=== PATIENT | male | born 1975 | race Caucasian/White ===

== ENCOUNTER 2019-05-15 19:50 | Emergency (ER) | payer OTHER ==
--- NOTE | 2019-05-15 19:52 | EDM.PDOC ---
ED HPI GENERAL MEDICAL PROBLEM - General Stated Complaint: DISLOCATED SHOULDER Time Seen by Provider: 05/15/19 19:52 Source of Information: Reports: Patient History Limitations: Reports: No Limitations - History of Present Illness INITIAL COMMENTS - FREE TEXT/NARRATIVE: HISTORY AND PHYSICAL: History of present illness: Patient is a 43-year-old male who presents to the emergency room with concerns of a dislocated left shoulder. He states he is playing with the dog when he felt the left shoulder "dislocate". 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 He denies any falls or injury. Denies hitting his head or any other extremity involvement. Patient denies any fever, chills, headache, change in vision, syncope or near syncope. Denies any chest pain, back pain, shortness of breath or cough. Denies any GI or symptoms. Denies any numbness or tingling of the affected extremity. Review of systems: As per history of present illness and below otherwise all systems reviewed and negative. Past medical history: As per history of present illness and as reviewed below otherwise noncontributory. Surgical history: As per history of present illness and as reviewed below otherwise noncontributory. Social history: See social history for further information Family history: As per history of present illness and as reviewed below otherwise noncontributory. Physical exam: General: Well-developed and well-nourished 43-year-old male. Alert and oriented. Nontoxic appearing and in no acute distress. HEENT: Atraumatic, normocephalic, pupils equal and reactive bilaterally, negative for conjunctival pallor or scleral icterus, mucous membranes moist, trachea midline. No drooling or trismus noted. No meningeal signs. No hot potato voice noted. Lungs: Clear to auscultation, breath sounds equal bilaterally, chest nontender. Heart: S1S2, regular rate and rhythm without overt murmur Abdomen: Soft, nondistended, nontender. Skin: Intact, warm, dry. No lesions or rashes noted. Extremities: Obvious step-off of the left shoulder and has a guarded in towards his body. Limited range of motion due to pain. He moves all other extremities per self without difficulty or deficits. Strong radial pulses bilaterally. Neurovascular unremarkable. Neuro: Awake, alert, oriented. Cranial nerves II through XII unremarkable. Cerebellum unremarkable. Motor and sensory unremarkable throughout. Exam nonfocal. Notes: IV pain medication was given prior to reduction. Reduction was explained to patient prior to performing. He gave verbal consent for this. Traction and countertraction was applied for left shoulder reduction. Post reduction x-ray was obtained. X-ray shows that the dislocation has been successfully reduced. Alignment is in normal arrangement. No fracture or other abnormalities are noted.. Patient placed in a shoulder immobilizer. We discussed the need for appropriate follow- up with an orthopedic provider. Supportive care measures were reviewed and discussed. Voices understanding and is agreeable to plan of care. Denies any further questions or concerns at this time. Diagnostics: Shoulder x-ray, postreduction shoulder x-ray Therapeutics: IV Dilaudid, Zofran Prescription: Tramadol Impression: Left shoulder dislocation Plan: 1. Rest, ice, elevate the affected extremity. Please wear the immobilizer as directed. 2. Tylenol and/or Ibuprofen as needed for pain management. 3. Follow up with the Orthopedic provider as we discussed. Return to the ED as needed and as discussed. Definitive disposition and diagnosis as appropriate pending reevaluation and review of above. Onset: Today left shoulder Pain Score (Numeric/FACES): 9 - Related Data Allergies Allergy/AdvReac Type Severity Reaction Status Date / Time No Known Allergies Allergy Verified 05/15/19 19:59 Home Meds: Home Meds Cetirizine HCl [Zyrtec] 10 mg PO DAILY 11/21/15 [History] Omeprazole Magnesium [Prilosec Otc] 20 mg PO DAILY 11/21/15 [History] Past Medical History - Infectious Disease History Infectious Disease History: Reports: Chicken Pox Other Infectious Disease History: childhood - Past Surgical History Musculoskeletal Surgical History: Reports: Other (See Below) Review of Systems - Review of Systems Review Of Systems: ROS reveals no pertinent complaints other than HPI. ED EXAM, GENERAL - Physical Exam Exam: See Below (See dictation) Course - Vital Signs Last Recorded V/S: Last Vital Signs Temp 97 F 05/15/19 19:50 Pulse 97 05/15/19 19:50 Resp 18 05/15/19 19:50 BP 131/100 H 05/15/19 19:50 Pulse Ox 94 L 05/15/19 19:50 - Orders/Labs/Meds Meds: Medications Discontinued Medications Generic Name Dose Route Start Last Admin Trade Name Daniloq PRN Reason Stop Dose Admin Hydromorphone HCl 1 mg 05/15/19 19:54 05/15/19 20:21 Dilaudid IVPUSH 05/15/19 19:55 1 mg ONETIME ONE Administration Hydromorphone HCl 1 mg 05/15/19 20:09 05/15/19 20:27 Dilaudid IVPUSH 05/15/19 20:10 1 mg ONETIME ONE Administration Hydromorphone HCl Confirm 05/15/19 20:23 05/15/19 20:35 Dilaudid Administered 05/15/19 20:24 Not Given Dose 1 mg .ROUTE .STK-MED ONE Ondansetron HCl 4 mg 05/15/19 19:54 05/15/19 20:22 Zofran IVPUSH 05/15/19 19:55 4 mg ONETIME ONE Administration Departure - Departure Time of Disposition: 20:48 Disposition: Home, Self-Care 01 Clinical Impression: Shoulder dislocation Qualifiers: Encounter type: initial encounter Laterality: left Qualified Code(s): S43.005A - Unspecified dislocation of left shoulder joint, initial encounter - Discharge Information Instructions: Shoulder Dislocation, [id number] Referrals: Edgar Santana MD [Primary Care Provider] - Additional Instructions: The following information is given to patients seen in the emergency department who are being discharged to home. This information is to outline your options for follow-up care. We provide all patients seen in our emergency department with a follow-up referral. The need for follow-up, as well as the timing and circumstances, are variable depending upon the specifics of your emergency department visit. If you don't have a primary care physician on staff, we will provide you with a referral. We always advise you to contact your personal physician following an emergency department visit to inform them of the circumstance of the visit and for follow-up with them and/or the need for any referrals to a consulting specialist. The emergency department will also refer you to a specialist when appropriate. This referral assures that you have the opportunity for follow-up care with a specialist. All of these measure are taken in an effort to provide you with optimal care, which includes your follow-up. Under all circumstances we always encourage you to contact your private physician who remains a resource for coordinating your care. When calling for follow-up care, please make the office aware that this follow-up is from your recent emergency room visit. If for any reason you are refused follow-up, please contact the [facility] Emergency Department at and asked to speak to the emergency department charge nurse. [facility] [address], [place] [address] [facility] [address] [place] [id number] [facility] - [facility] Professional Building [address] [place] [address], [address] [place] [address] 1. Rest, ice, elevate the affected extremity. Please wear the immobilizer as directed. 2. Tylenol and/or Ibuprofen as needed for pain management. 3. Follow up with the Orthopedic provider as we discussed. Return to the ED as needed and as discussed.
[2019-05-15] MEDS ORDERED: Ondansetron 4 MG/2 ML SDV IVPUSH ONE (19:54)
[2019-05-15] MEDS ORDERED: HYDROmorphone 1 MG/ML Syringe IVPUSH ONE (19:54)
[2019-05-15] MEDS ORDERED: HYDROmorphone 2 MG/ML SDV IVPUSH ONE (20:09)
[2019-05-15] MEDS ORDERED: HYDROmorphone 1 MG/ML Syringe ONE (20:23)
--- NOTE | 2019-05-15 20:23 | CR ---
Indication: Pain, dislocation. Technique: Left shoulder 2 views Comparison: None Findings/Impression: There is an anterior dislocation of the glenohumeral joint. No fracture visualized. Soft tissues are unremarkable. Dictated by Gian Cowan MD @ May 15 2019 8:20PM Signed by Dr. Gian Cowan @ May 15 2019 8:22PM
--- NOTE | 2019-05-15 20:49 | CR ---
Indication: Shoulder dislocation post reduction Technique: Left shoulder 1 views Comparison: May 15, 2019 Findings/Impression: Dislocation has been successfully reduced. Alignment appears normal on this single image. No fracture or other new abnormality evident. Dictated by Gian Cowan MD @ May 15 2019 8:46PM Signed by Dr. Gian Cowan @ May 15 2019 8:48PM
[2019-05-15 21:20] VITALS: BP 140/95
== END 2019-05-15 21:09 | disposition home or self-care (01) ==
LOC: MW.ED 19:50
DX: S43.015A Anterior dislocation of left humerus, initial encounter (principal); Z79.899 Other long term (current) drug therapy; X50.9XXA Other and unspecified overexertion or strenuous movements or postures, initial encounter
CPT/HCPCS: 23650; 73020; 73030; 96374; 96375; 99283; J1170; J2405

== ENCOUNTER 2019-06-23 10:41 | Day surgery (SDC) | payer OTHER ==
[~2019-06-23 10:41] MED LIST: Lactated Ringers 1,000 ML IV SCH; Sodium Chloride 0.9% 10 ML SDV IV PRN; Sodium Chloride 0.9% 10 ML Syringe FLUSH PRN; Sodium Chloride 0.9% 2.5 ML Syringe FLUSH PRN
--- NOTE | 2019-06-23 11:29 | PCM.PREANE ---
Preanesthetic Assessment - Anesthesia/Transfusion/Family Hx Anesthesia History: Prior Anesthesia Without Reaction Other Type of Anesthesia Reaction Comment: slow to wake up after Septoplasty Family History of Anesthesia Reaction: No Transfusion History: No Prior Transfusion(s) - Review of Systems General: No Symptoms Pulmonary: Cough Cardiovascular: No Symptoms Neurological: No Symptoms Other: Reports: None - Physical Assessment NPO Status Date: 06/22/19 Height: 5 ft 9 in Weight: 103.873 kg ASA Class: 3 Mental Status: Alert & Oriented x3 Airway Class: Mallampati = 2 (receeding chin) Dentition: Reports: Normal Dentition ROM/Head Extension: Full Lungs: Clear to Auscultation, Normal Respiratory Effort Cardiovascular: Regular Rate, Regular Rhythm - Allergies Allergies/Adverse Reactions: Allergies Allergy/AdvReac Type Severity Reaction Status Date / Time No Known Allergies Allergy Verified 06/20/19 11:49 - Blood Blood Available: No - Anesthesia Plan Pre-Op Medication Ordered: None - Acknowledgements Anesthesia Type Planned: General Anesthesia Pt an Appropriate Candidate for the Planned Anesthesia: Yes Alternatives and Risks of Anesthesia Discussed w Pt/Guardian: Yes Pt/Guardian Understands and Agrees with Anesthesia Plan: Yes Additional Comments: anes prob list: gerd, cough, prob new onset htn- bp in office 193/108, bp today 149/98. Advised to see Dr Castaneda for follow up PLAN: tiva PreAnesthesia Questionnaire Respiratory History: Reports: Other (See Below) Other Respiratory History: thinks he may have sleep apnea Gastrointestinal History: Reports: GERD Musculoskeletal History: Reports: Fracture Other Musculoskeletal History: hx of fx right foot and clavicle Endocrine/Metabolic History: Reports: Obesity/BMI 30+ - Infectious Disease History Infectious Disease History: Reports: Chicken Pox Other Infectious Disease History: childhood - Past Surgical History Head Surgeries/Procedures: Reports: None HEENT Surgical History: Reports: Adenoidectomy, Naso-Sinus Surgery, Tonsillectomy Musculoskeletal Surgical History: Reports: Other (See Below) Other Musculoskeletal Surgeries/Procedures:: hx of left shoulder dislocation x5 , reduced under anesthesia x4 - SUBSTANCE USE Smoking Status *Q: Current Every Day Smoker Tobacco Use Within Last Twelve Months: Smokeless Tobacco Recreational Drug Use History: No - HOME MEDS Home Medications: Home Meds Omeprazole Magnesium [Prilosec Otc] 40 mg PO DAILY 11/21/15 [History] - CURRENT (IN HOUSE) MEDS Current Meds: Current Medications Lactated Ringer's (Ringers, Lactated) 1,000 mls @ 125 mls/hr IV ASDIRECTED EFRAIN Sodium Chloride (Saline Flush) 10 ml FLUSH ASDIRECTED PRN PRN Reason: Keep Vein Open Sodium Chloride (Saline Flush) 2.5 ml FLUSH ASDIRECTED PRN PRN Reason: Keep Vein Open Sodium Chloride (Saline Flush) 10 ml FLUSH ASDIRECTED PRN PRN Reason: Keep Vein Open Sodium Chloride (Saline Flush) 2.5 ml FLUSH ASDIRECTED PRN PRN Reason: Keep Vein Open Sodium Chloride (Normal Saline) 10 ml IV ASDIRECTED PRN PRN Reason: IV Use
[2019-06-23] MEDS ORDERED: Lidocaine 2% 5 ML SDV ONE (11:52)
[2019-06-23] MEDS ORDERED: fentaNYL 100 MCG/2 ML SDV ONE (11:53)
[2019-06-23] MEDS ORDERED: Midazolam 1 MG/ML 2 ML SDV ONE (11:53)
[2019-06-23] MEDS ORDERED: Propofol 200 MG/20 ML SDV ONE (11:53)
--- NOTE | 2019-06-23 14:39 | PCM.OPNOTE ---
- General Post-Op/Procedure Note Date of Surgery/Procedure: 06/23/19 Operative Procedure(s): Diagnostic EGD and screening colonoscopy Findings: Diverticulosis, Normal EGD Pre Op Diagnosis: GERD, family history of colon cancer Post-Op Diagnosis: Diverticulosis, GERD Anesthesia Technique: [facility] [place] Primary Surgeon: Huyen Moreno Condition: Good
--- NOTE | 2019-06-23 14:56 | PCM.POSTAN ---
POST ANESTHESIA ASSESSMENT - MENTAL STATUS Mental Status: Alert, Oriented - RESPIRATORY Respiratory Status: Respiratory Rate WNL, Airway Patent, O2 Saturation Stable, Supplemental Oxygen - CARDIOVASCULAR CV Status: Pulse Rate WNL, Blood Pressure Stable - GASTROINTESTINAL GI Status: No Symptoms - POST OP HYDRATION Hydration Status: Adequate & Stable
--- NOTE | 2019-06-23 14:56 | PCM48HPAN ---
Post Anesthesia Note - EVALUATION WITHIN 48HRS OF ANESTHETIC Vital Signs in Normal Range: Yes Patient Participated in Evaluation: Yes Respiratory Function Stable: Yes Airway Patent: Yes Cardiovascular Function Stable: Yes Hydration Status Stable: Yes Pain Control Satisfactory: Yes Nausea and Vomiting Control Satisfactory: Yes Mental Status Recovered: Yes Resp Rate: 19
[2019-06-23 15:57] VITALS: BP 124/84
--- NOTE | 2019-06-23 15:57 | OR ---
SURGEON: HUYEN MORENO MD DATE OF PROCEDURE: 06/23/2019 PREOPERATIVE DIAGNOSES: 1. Gastroesophageal reflux disease. 2. Family history of colon cancer. POSTOPERATIVE DIAGNOSES: 1. Gastroesophageal reflux disease. 2. Diverticulosis. PROCEDURE PERFORMED: Diagnostic esophagogastroduodenoscopy and colonoscopy. PRIMARY SURGEON: Huyen Moreno MD. ANESTHESIA: MAC. INSTRUMENT USED: Olympus endoscope and colonoscope. EXTENT OF EXAM: To the second portion of duodenum, to the cecum. PREPARATION: Good. LIMITATIONS: None. INDICATIONS FOR EXAMINATION: The patient is a 43-year-old male who presents for a first time screening colonoscopy. His father had colon cancer in his early 60s. The patient also has a history of chronic GERD associated with cough. The patient and I discussed the need for diagnostic EGD and screening colonoscopy. I explained the procedure; expected perioperative course; and risks including bleeding, infection, or damage to surrounding structures. The patient verbalized understanding and wishes to proceed. PROCEDURE IN DETAIL: The patient was brought to the endoscopy suite and placed in the left lateral decubitus position. A time-out was completed verifying the patient's name, age, date of , allergies, and procedure to be performed. A bite block was placed in the patient's mouth. Monitored anesthesia care was induced and continuous oxygen was provided via nasal cannula throughout the procedure. After adequate sedation was achieved, a well-lubricated endoscope was placed in the patient's mouth and advanced under direct visualization to the second portion of the duodenum. This appeared normal and a photograph was taken. The scope was then straightened out and fully withdrawn while examining the color, texture, anatomy, and integrity of the mucosa of the upper GI tract. The duodenum appeared normal. The scope was brought into the stomach and a photograph was taken of the GE junction as well as the pylorus. Both appeared normal. The stomach was without inflammation or gross ulceration. Biopsies were taken of the gastric antrum, body, and fundus and sent for histologic review and H. pylori testing. Scope was brought in the distal esophagus and a photograph was taken of the Z-line which appeared normal. The remainder of the esophageal mucosa was free of pathology. The scope was removed and this portion of the procedure terminated. A digital rectal exam was performed. This exam was within normal limits. A well-lubricated colonoscope was inserted in the rectum and advanced under direct visualization to the level of the cecum. The cecum was identified by both visual and anatomic landmarks. A photograph was taken of the cecal cap; however, I was unable to retroflex the scope within the cecum due to looping of the scope more proximally. The scope was then straightened out and fully withdrawn while examining the color, texture, anatomy, and integrity of the mucosa from the cecum to the anal canal. The findings were consistent with normal colonic mucosa other than diverticulosis scattered throughout the sigmoid colon. The scope was brought into the rectum and retroflexed to allow visualization of the anal canal opening. This appeared normal and a photograph was taken. The scope was then straightened out and fully withdrawn. The cecum to anus time was 6 minutes. The patient tolerated the procedure well and was taken to PACU in stable condition. ENDOSCOPIC DIAGNOSES: 1. Gastroesophageal reflux disease. 2. Diverticulosis. RECOMMENDATIONS: Follow up in clinic in 2 weeks. SAARN HODGE /[id number]
== END 2019-06-23 15:40 | disposition home or self-care (01) ==
LOC: MW.SDS 10:41
PROVIDERS: ATTEND Surgery
DX: Z12.11 Encounter for screening for malignant neoplasm of colon (principal); K21.9 Gastro-esophageal reflux disease without esophagitis; K57.30 Diverticulosis of large intestine without perforation or abscess without bleeding; J30.2 Other seasonal allergic rhinitis; R05 Cough; F17.290 Nicotine dependence, other tobacco product, uncomplicated; Z80.0 Family history of malignant neoplasm of digestive organs; Z79.899 Other long term (current) drug therapy
CPT/HCPCS: 43239; 45378; J2001; J2250; J2704; J3010; J7120

== ENCOUNTER 2021-05-14 13:57 | Emergency (ER) | payer OTHER ==
[2021-05-14 14:04] VITALS: BP 114/79; PULSE 80
[2021-05-14] MEDS ORDERED: Ibuprofen 600 MG Tab PO ONE (14:12)
--- NOTE | 2021-05-14 15:00 | CR ---
INDICATION: Left shoulder dislocation. TECHNIQUE: Three views left shoulder. COMPARISON: Left shoulder views 06/14/2019. FINDINGS: Moderate size focus of indentation and compression involving the superior lateral left humeral head is stable and consistent with a previous Hill-Sachs compression deformity. This finding is associated with previous anterior shoulder dislocation. No acute fracture or dislocation in left shoulder. Small lucencies in the left glenoid and left acromion are unchanged in the acromion and new in the glenoid but nonspecific. Left shoulder otherwise unremarkable. Dictated by Maico Schafer MD @ 05/14/2021 2:59:[address] Maico Schafer @ May 14 2021 2:59PM
--- NOTE | 2021-05-14 15:13 | EDM.PDOC ---
ED HPI GENERAL MEDICAL PROBLEM - General Chief Complaint: Upper Extremity Injury/Pain Stated Complaint: SHOULDER INJURY Time Seen by Provider: 05/14/21 13:59 - History of Present Illness INITIAL COMMENTS - FREE TEXT/NARRATIVE: CHIEF COMPLAINT(S): Left shoulder dislocation HISTORY OF PRESENT ILLNESS: This is a 45-year-old man with a past medical history of recurrent left shoulder dislocation status post surgical repair in [place] who comes to the emergency department with a chief complaint of left shoulder dislocation. The patient states that he was at work after he was using a crowbar above his head his shoulder dislocated. He states that upon letting his shoulder down that it appeared to relocate however he is experiencing some pain. He states that it was initially 10 and 10 out of 3 out of 10 which she describes as throbbing. He denies any numbness, tingling, weakness. He denies any other injuries or symptoms. REVIEW OF SYSTEMS: Cardiovascular: Denies chest pain Respiratory: Denies shortness of breath Skin:Denies a rash MSK: Positive for left shoulder pain and dislocation Neurological: Denies blurred vision, numbness, tingling, weakness PAST MEDICAL HISTORY: As per history of present illness and as reviewed below otherwise noncontributory. SURGICAL HISTORY: As per history of present illness and as reviewed below otherwise noncontributory. SOCIAL HISTORY: As per history of present illness and as reviewed below otherwise noncontributory. FAMILY HISTORY: As per history of present illness and as reviewed below otherwise noncontributory. EXAMINATION OF ORGAN SYSTEMS/BODY AREAS: Constitutional: Blood pressure is 114/79, heart rate 80, respiratory rate 18 with an oxygen saturation 95% on room air. Temperature 36.5 General: Overall well-appearing man who is in no acute distress Psychiatric: Appropriate mood and affect. Eyes: No scleral icterus or conjunctival erythema ENMT: Moist mucous membranes. No pharyngeal erythema Cardiovascular: Regular, rate, and rhythm. No gallops, murmurs, or rubs. Bilateral upper extremity pulses symmetric and intact. No peripheral edema. No JVD. Respiratory: Lungs clear to auscultation bilaterally. No wheezes, rales, or rhonchi. Gastrointestinal: Soft, non-tender, non-distended. Normoactive bowel sounds Genitourinary: No suprapubic tenderness Musculoskeletal: There is some mild tenderness to palpation along the left anterior shoulder. There is no obvious deformity or asymmetry from the right. The patient is able to reach and extend and touch his right shoulder with his left hand. It does appear to be relocated. Skin: No lesions or abrasions. Neurological: Alert, GCS 15 distal sensation is intact. MEDICAL DECISION MAKING AND COURSE IN THE ED WITH INTERPRETATION/REVIEW OF DIAGNOSTIC STUDIES: This is a 45-year-old man with a past medical history of recurrent left shoulder dislocation status post surgical repair in [place] who comes to the emergency department with reported left shoulder dislocation status post relocation who has some mild pain on the anterior portion of his left shoulder. At this time we will get a repeat shoulder x-ray and provide the patient with ibuprofen for pain control. We did put the patient in a shoulder sling. The radiological images were viewed by myself along with reading the report from the radiologist. Left shoulder x-ray does not reveal any acute fracture. There is moderate sized focus of indentation and compression involving the superior lateral left humeral head which is stable and consistent with a previous Hill-Sachs compression deformity. There is small lucencies in the left glenoid and left acromion which are unchanged in the acromion but new in the glenoid but are nonspecific. Otherwise is unremarkable. After imaging I did discuss the results with the patient. I discussed that he should immobilize his left shoulder with a sling. I discussed that he should use Tylenol and Motrin for pain relief and follow-up with his surgeon in [place]. He is to return for any new or worsening symptoms. He was amenable discharge and had no further questions DISPOSITION: The patient was discharged home in stable condition. The patient will follow up with his orthopedic surgeon within 1 week CONDITION: Fair PROCEDURES: None FINAL IMPRESSION(S)/DIAGNOSES: 1. Acute left shoulder dislocation status post relocation spontaneously Omar Taveras M.D. left shoulder Pain Score (Numeric/FACES): 3 - Related Data Allergies Allergy/AdvReac Type Severity Reaction Status Date / Time No Known Allergies Allergy Verified 05/14/21 14:05 Home Meds: Home Meds Omeprazole Magnesium [Prilosec Otc] 40 mg PO DAILY 11/21/15 [History] Cetirizine [ZyrTEC] 05/14/21 [History] Cholecalciferol (Vitamin D3) [Vitamin D] 05/14/21 [History] Past Medical History HEENT History: Reports: None Cardiovascular History: Reports: None Respiratory History: Reports: Other (See Below) Other Respiratory History: thinks he may have sleep apnea Gastrointestinal History: Reports: GERD Genitourinary History: Reports: None Musculoskeletal History: Reports: Fracture Other Musculoskeletal History: hx of fx right foot and clavicle Neurological History: Reports: None Psychiatric History: Reports: None Endocrine/Metabolic History: Reports: Obesity/BMI 30+ Hematologic History: Reports: None Immunologic History: Reports: None Oncologic (Cancer) History: Reports: None Dermatologic History: Reports: None - Infectious Disease History Infectious Disease History: Reports: Chicken Pox Other Infectious Disease History: childhood - Past Surgical History Head Surgeries/Procedures: Reports: None HEENT Surgical History: Reports: Adenoidectomy, Naso-Sinus Surgery, Tonsillectomy Musculoskeletal Surgical History: Reports: Other (See Below) Other Musculoskeletal Surgeries/Procedures:: hx of left shoulder dislocation x5, reduced under anesthesia x4 Social & Family History - Family History Family Medical History: No Pertinent Family History - Tobacco Use Tobacco Use Status *Q: Never Tobacco User Second Hand Smoke Exposure: No - Caffeine Use Caffeine Use: Reports: None - Recreational Drug Use Recreational Drug Use: No Review of Systems - Review of Systems Review Of Systems: See Below ED EXAM, GENERAL - Physical Exam Exam: See Below Course - Vital Signs Last Recorded V/S: Last Vital Signs Temp 36.5 C 05/14/21 13:58 Pulse 80 05/14/21 13:58 Resp 18 05/14/21 13:58 BP 114/79 05/14/21 13:58 Pulse Ox 95 05/14/21 13:58 - Orders/Labs/Meds Meds: Medications Discontinued Medications Generic Name Dose Route Start Last Admin Trade Name Daniloq PRN Reason Stop Dose Admin Ibuprofen 600 mg 05/14/21 14:12 05/14/21 14:16 Ibuprofen 600 Mg Tab PO 05/14/21 14:13 600 mg ONETIME ONE Administration Departure - Departure Time of Disposition: 15:12 Disposition: Home, Self-Care 01 Condition: Good Clinical Impression: Dislocation of left shoulder joint - Discharge Information *PRESCRIPTION DRUG MONITORING PROGRAM REVIEWED*: No *COPY OF PRESCRIPTION DRUG MONITORING REPORT IN PATIENT ERVIN: No Instructions: Shoulder Dislocation, How To Use a Sling, [id number] Referrals: Yuriy Boothe MD [Primary Care Provider] - Forms: ED Department Discharge Additional Instructions: You were evaluated today on an emergent basis. At this time your shoulder x-ray did not reveal any thing new from prior x-rays. At this time it is important that you follow-up with your surgeon regarding your recurrent left shoulder dislocation. If you have any numbness, tingling, weakness and ability to grasp objects with your left hand I would return to the emergency department. Please keep your shoulder in a shoulder immobilizer that we provided you until follow- up with orthopedics. Please take Tylenol and Motrin for pain relief. [facility] [address] [place] [address], [address] [place] [id number] The patient is informed of any results of their evaluation and diagnostic workup and all questions are answered. They are given discharge instructions and return precautions. The patient is stable for discharge. The patient states they u nderstand and agree with the plan and that they will return if their symptoms get worse or if they have any new concerns. The following information is given to patients seen in the emergency department who are being discharged to home. This information is to outline your options for follow-up care. We provide all patients seen in our emergency department with a follow-up referral. The need for follow-up, as well as the timing and circumstances, are variable depending upon the specifics of your emergency department visit. If you don't have a primary care physician on staff, we will provide you with a referral. We always advise you to contact your personal physician following an emergency department visit to inform them of the circumstance of the visit and for follow-up with them and/or the need for any referrals to a consulting specialist. The emergency department will also refer you to a specialist when appropriate. This referral assures that you have the opportunity for follow-up care with a specialist. All of these measure are taken in an effort to provide you with optimal care, which includes your follow-up. Under all circumstances we always encourage you to contact your private physician who remains a resource for coordinating your care. When calling for follow-up care, please make the office aware that this follow-up is from your recent emergency room visit. If for any reason you are refused follow-up, please contact the Emergency Department at and asked to speak to the emergency department charge nurse. Sepsis Event Note (ED) - Evaluation Sepsis Screening Result: No Definite Risk
== END 2021-05-14 15:40 | disposition home or self-care (01) ==
LOC: MW.ED 13:57
DX: S43.015A Anterior dislocation of left humerus, initial encounter (principal); E66.9 Obesity, unspecified; Z68.30 Body mass index [BMI] 30.0-30.9, adult; W27.0XXA Contact with workbench tool, initial encounter; Y99.0 Civilian activity done for income or pay
CPT/HCPCS: 73030; 99283; A9270